=== PATIENT | male | born 1970 | race Two or more races ===

== ENCOUNTER 2021-01-27 08:57 | Day surgery (SDC) | payer OTHER | END 2021-01-27 14:10 | disposition home or self-care (01) | LOC: AMB-ENDOS 08:57 | PROVIDERS: ATTEND Surgery | DX: D12.7 Benign neoplasm of rectosigmoid junction (principal); K62.82 Dysplasia of anus; K64.8 Other hemorrhoids; Z20.822 Contact with and (suspected) exposure to COVID-19 ==